=== PATIENT | male | born 1990 | race Caucasian/White ===

== ENCOUNTER 2017-10-12 04:31 | Emergency (ER) | payer SELFPAY ==
[~2017-10-12] VITALS: Ht 177.8 cm; Wt 57.9 kg
[~2017-10-12 04:31] MED LIST: IBUP-1984 PO; NO HOME MEDS; PANT40TA39 PO; ZOF4T PO
[2017-10-12] MEDS ORDERED: ondansetron/PF 4mg/2ml inj IM ONE (05:20)
[2017-10-12] MEDS ORDERED: morphine 4 MG/ML inj SYRINge IM ONE (05:20)
[2017-10-12] MEDS ORDERED: ketorolac trometh inj. 60 MG/2 ML VIAL IM ONE (05:20)
[2017-10-12] MEDS ORDERED: HYDR-3965 PO (05:21)
[2017-10-12] MEDS ORDERED: AMOX500C2 PO (05:21)
[2017-10-12] MEDS ORDERED: IBUP-1984 PO (05:21)
[2017-10-12 05:47] VITALS: BP 140/83
== END 2017-10-12 05:48 | disposition home or self-care (01) ==
LOC: ER 04:32
DX: K08.89 Other specified disorders of teeth and supporting structures (principal); K02.9 Dental caries, unspecified; R51 Headache; F12.10 Cannabis abuse, uncomplicated; Z79.899 Other long term (current) drug therapy
CPT/HCPCS: 96372; 99284; J1885; J2270; J2405

== ENCOUNTER 2020-12-08 23:33 | Emergency (ER) | payer OTHER ==
[~2020-12-08] VITALS: Ht 167.6 cm; Wt 65.9 kg
[2020-12-08 23:36] VITALS: BP 143/105
== END 2020-12-09 02:38 ==
LOC: ER 23:34
DX: S02.85XA Fracture of orbit, unspecified, initial encounter for closed fracture (principal); S02.40FA Zygomatic fracture, left side, initial encounter for closed fracture; S00.83XA Contusion of other part of head, initial encounter; T65.894A Toxic effect of other specified substances, undetermined, initial encounter; R68.84 Jaw pain; R07.89 Other chest pain; R51.9 Headache, unspecified; F12.90 Cannabis use, unspecified, uncomplicated; Z79.899 Other long term (current) drug therapy; Y08.89XA Assault by other specified means, initial encounter; Y93.89 Activity, other specified; Y92.89 Other specified places as the place of occurrence of the external cause; Y99.8 Other external cause status
CPT/HCPCS: 70486; 99284

== ENCOUNTER 2022-12-28 21:15 | Emergency (ER) | payer MEDICAID ==
[~2022-12-28] VITALS: Ht 177.8 cm; Wt 63.6 kg
[2022-12-28 21:56] VITALS: BP 122/81
--- NOTE | 2022-12-28 22:48 | NUR ---
PT REPORTS NO S/S OF STD AT THIS TIME, ONLY POSSIBLE CONTACT.
[2022-12-28] MEDS ORDERED: METR-159 PO (23:56)
== END 2022-12-29 00:14 | disposition home or self-care (01) ==
LOC: ER 21:15
DX: Z20.2 Contact with and (suspected) exposure to infections with a predominantly sexual mode of transmission (principal); F12.90 Cannabis use, unspecified, uncomplicated
CPT/HCPCS: 36415; 87491; 99283

== ENCOUNTER 2023-08-27 19:39 | Emergency (ER) | payer MEDICAID ==
[~2023-08-27] VITALS: Ht 175.3 cm; Wt 63.6 kg
[2023-08-27 19:50] VITALS: TEMP 98.2
[2023-08-27] MEDS: aspirin 81mg tab.chew PO ONE (20:17)
[2023-08-27 20:20] LABS: BASOPHILS # (AUTO) 0.1 X10'3 (0-0.2); BASOPHILS % (AUTO) 0.5 % (0-1); EOSINOPHILS # (AUTO) 0.4 X10'3 (0-0.9); HEMATOCRIT 48.9 % (42.0-52.0); HEMOGLOBIN 16.6 g/dl (14.0-17.9); LYMPHOCYTES # (AUTO) 3.7 X10'3 (1.1-4.8); LYMPHOCYTES % (AUTO) 29.8 % (21-51); MEAN CORPUSCULAR HGB CONC 33.9 g/dL (33.0-36.5); MEAN CORPUSCULAR VOLUME 91.3 FL (78-98); MEAN PLATELET VOLUME 7.7 FL (7.4-10.4); MONOCYTES % (AUTO) 7.9 % (2-12); NEUTROPHILS # (AUTO) 7.3 X10'3 (1.8-7.7); NEUTROPHILS % (AUTO) 58.8 % (42-75); PLATELET COUNT 354 X10'3 (140-440); RED BLOOD COUNT 5.35 X10'6 (4.70-6.10); RED CELL DISTRIBUTION WIDTH 13.9 % (11.5-14.5); WHITE BLOOD COUNT 12.4 X10'3 (4.5-11.0)
[2023-08-27 20:44] LABS: ALBUMIN 4.2 G/DL (3.4-5.0); ANION GAP 12 (8-16); BLOOD UREA NITROGEN 24 MG/DL (7-18); CHLORIDE 106 MMOL/L (99-107); CREATININE 1.09 MG/DL (0.60-1.10); GLUCOSE 121 MG/DL (70-104); LIPASE 17 U/L (16-77); POTASSIUM 4.1 MMOL/L (3.5-5.1); SODIUM 140 MMOL/L (135-145); TOTAL CARBON DIOXIDE 21.6 MMOL/L (24-32); eCRCL 88 ML/MIN; eGFR 79 ML/MIN
[2023-08-27 20:45] LABS: PRO BRAIN NATRIURETIC PEPTIDE < 30 PG/ML (0-125)
[2023-08-27 22:06] VITALS: RESP 16
[2023-08-27 22:47] VITALS: BP 154/66; PULSE 74; O2SAT 100
== END 2023-08-27 22:48 | disposition home or self-care (01) ==
LOC: ER 19:40
DX: R07.9 Chest pain, unspecified (principal); Y04.8XXA Assault by other bodily force, initial encounter; Y93.89 Activity, other specified; Y92.89 Other specified places as the place of occurrence of the external cause; Y99.8 Other external cause status
CPT/HCPCS: 36415; 71045; 80048; 83690; 83880; 84484; 85025; 93005; 99285